=== PATIENT | female | born 1990 | race Caucasian/White ===

== ENCOUNTER 2022-01-09 20:22 | Emergency (ER) | payer OTHER ==
[~2022-01-09] VITALS: Ht 172.7 cm; Wt 81.6 kg
--- NOTE | 2022-01-09 20:34 | NUR ---
pt in room 5 ambulatory, c/o of abd pain sob and difficulty urinating.
[2022-01-09] MEDS ORDERED: HYDROMORPHONE 1 MG/1 ML DISP.SYRIN IV ONE (21:45)
[2022-01-09] MEDS ORDERED: PROCHLORPERAZINE EDISYLATE 10 MG/2 ML VIAL IV ONE (21:45)
[2022-01-09] MEDS ORDERED: HYDROMORPHONE 2 MG/1 ML DISP.SYRIN ONE (21:47)
[2022-01-09] MEDS ORDERED: PROCHLORPERAZINE EDISYLATE 10 MG/2 ML VIAL ONE (21:47)
[2022-01-09 21:51] LABS: HEMATOCRIT 39.4 % (31.2-41.9); MEAN CORPUSCULAR HEMOGLOBIN 27.6 uug (24.7-32.8); MEAN CORPUSCULAR VOLUME 80.6 fL (75.5-95.3); PLATELET COUNT (AUTO) 312 K/uL (179-408)
[2022-01-09 21:55] LABS: CREATININE 0.7 mg/dL (0.6-1.3); POTASSIUM 4.2 mmol/L (3.5-5.1)
[2022-01-09 22:02] LABS: BILIRUBIN,DIRECT 0.1 mg/dL (0.0-0.2); BILIRUBIN,TOTAL 0.2 mg/dL (0.2-1.0); TOTAL PROTEIN, SERUM 6.9 g/dL (6.4-8.2)
--- NOTE | 2022-01-09 22:08 | NUR ---
radiology here for chest xray, asked tech to call data collection technician.
--- NOTE | 2022-01-09 22:52 | NUR ---
weatherization field technician here for pt testing.
[2022-01-09] MEDS ORDERED: LIDOCAINE 1%-EPI 1:100,000 20 ML VIAL ONE (23:42)
[2022-01-09 23:50] LABS: *BILIRUBIN,URIN NEGATIVE (NEGATIVE); *BLOOD, URINE NEGATIVE (NEGATIVE); *CLARITY,URINE CLEAR (CLEAR); *COLOR,URINE YELLOW (YELLOW); *KETONES,URINE NEGATIVE (NEGATIVE); *UROBILINOGEN,URINE 0.2 E.U./dl (NORMAL); LEUKOCYTE ESTERASE ,URINE NEGATIVE (NEGATIVE); NITRITE, URINE NEGATIVE (NEGATIVE); UGLUCOSE NEGATIVE (NEGATIVE)
[2022-01-10] MEDS ORDERED: HYDROMORPHONE 1 MG/1 ML DISP.SYRIN ONE (00:29)
[2022-01-10] MEDS ORDERED: HYDROMORPHONE 1 MG/1 ML DISP.SYRIN IV ONE (00:30)
--- NOTE | 2022-01-10 00:55 | NUR ---
Esther Yang CNA with Dr. Mireles for procedure.
[2022-01-10] MEDS ORDERED: PROC-11 PO (01:00)
[2022-01-10] MEDS ORDERED: HYDR4TAB4 PO (01:00)
--- NOTE | 2022-01-10 01:08 | NUR ---
Patient discharged to home in stable condition. Written and verbal after care instructions given. Patient verbalizes understanding of instructions. Stressed follow up or return to ER for worsening s/s. pt is receiving a ride home, pt steady on her feet, denies pain.
[2022-01-10 01:14] VITALS: BP 120/78
== END 2022-01-10 01:14 | disposition home or self-care (01) ==
LOC: ER 20:34
DX: N98.1 Hyperstimulation of ovaries (principal); E88.09 Other disorders of plasma-protein metabolism, not elsewhere classified
CPT/HCPCS: 36415; 49407; 71045; 76856; 80048; 80076; 81003; 85025; 96374; 96375; 96376; 99284; J0780; J1170 ×2; J3490; A4663